=== PATIENT | female | born 1945 ===

== ENCOUNTER → 2017-08-07 | Outpatient (CLI) | payer OTHER ==
[~2017-08-07] MED LIST: ASCO500 PO; ATOR10 PO; Aspir 8181 MG PO; B-121000 MC2 PO; CALCAVITDA; CITA20 PO; D3-20002000 UNIT PO; FISH OIL 1,0001 EAC1 PO; FURO20 PO; K-Dur20 MEQ PO; MULTI VITAMIN1 EACH PO; Mobic15 MG PO; OMEPRAZOLE MAGN20 MG PO; OXYC5 PO; Reclast 55 MG/100 M; Reclast 55 MG/100 M IV; TOCO1000 PO; TRAM50 PO; ZESTORETIC 20-121 EA PO; ZESTRIL40 MG PO; ZOHYDRO ER10 M1
[2017-08-08 13:24] LABS: Source VAGINAL
== END | disposition home or self-care (01) ==
LOC: LAB 15:30
PROVIDERS: Nurse Practitioner
DX: Z01.419 Encounter for gynecological examination (general) (routine) without abnormal findings (principal)
CPT/HCPCS: G0145

== ENCOUNTER 2018-02-01 07:11 | Day surgery (SDC) | payer OTHER ==
[~2018-02-01 07:11] MED LIST changes: +ASCO500; -ASCO500 PO; -FISH OIL 1,0001 EAC1 PO; +FISH1000 PO; +MULTI VITAMIN1 EACH; -MULTI VITAMIN1 EACH PO; -OMEPRAZOLE MAGN20 MG PO; -OXYC5 PO; +Prilosec20 MG PO; -Reclast 55 MG/100 M IV; -TOCO1000 PO; +TOCO400; -TRAM50 PO; +ZESTRIL40 MG; -ZESTRIL40 MG PO
== END 2018-02-01 23:36 | disposition home or self-care (01) ==
LOC: MOI MAM 07:11
PROC: 0HBU3ZX Excision of Left Breast, Percutaneous Approach, Diagnostic (ICD-10-PCS; principal; 2018-02-01)
DX: N60.32 Fibrosclerosis of left breast (principal); R92.8 Other abnormal and inconclusive findings on diagnostic imaging of breast; Z85.3 Personal history of malignant neoplasm of breast
CPT/HCPCS: 19083; 77065; 88305; A4648

== ENCOUNTER 2020-04-22 13:02 | Day surgery (SDC) | payer OTHER ==
[~2020-04-22] VITALS: Ht 152.4 cm; Wt 141.9 kg
[~2020-04-22 13:02] MED LIST changes: +ANAS1 PO; -ASCO500; +ASCO500 PO; +FISH OIL 1,0001 EAC1 PO; -FISH1000 PO; -MULTI VITAMIN1 EACH; +MULTI VITAMIN1 EACH PO; +OMEPRAZOLE MAGN20 MG PO; +OXYC5 PO; -Prilosec20 MG PO; +Reclast 55 MG/100 M IV; +TOCO1000 PO; -TOCO400; +TRAM50 PO; -ZESTRIL40 MG; +ZESTRIL40 MG PO
--- NOTE | 2020-04-22 13:44 | NUR ---
04/22/20 1344 John Mares 1ST IV ATTEMPT RIGHT HAND VEIN BLEW, 2ND IV ATTEMPT UNSUCCESSFUL-CMT
== END 2020-04-22 15:40 | disposition home or self-care (01) ==
LOC: ORSCSDS 13:02
PROVIDERS: Surgery
PROC: 0DBL8ZX Excision of Transverse Colon, Via Natural or Artificial Opening Endoscopic, Diagnostic (ICD-10-PCS; principal; 2020-04-22 14:15)
DX: Z12.11 Encounter for screening for malignant neoplasm of colon (principal); Z86.010 Personal history of colon polyps; D12.3 Benign neoplasm of transverse colon; K63.89 Other specified diseases of intestine; K62.4 Stenosis of anus and rectum; I10 Essential (primary) hypertension; K21.9 Gastro-esophageal reflux disease without esophagitis; F32.9 Major depressive disorder, single episode, unspecified; E66.01 Morbid (severe) obesity due to excess calories; Z68.44 Body mass index [BMI] 60.0-69.9, adult; Z79.84 Long term (current) use of oral hypoglycemic drugs; Z79.82 Long term (current) use of aspirin; Z79.899 Other long term (current) drug therapy
CPT/HCPCS: 88305; J2704; J7120

== ENCOUNTER 2020-06-25 06:56 | Day surgery (SDC) | payer OTHER ==
[~2020-06-25] VITALS: Ht 165.1 cm; Wt 141.0 kg
--- NOTE | 2020-06-25 09:10 | NUR ---
ALERT AND ORIENTED. UP TO BATHROOM. ABLE TO TAKE SIPS OF WATER. UNABLE TO ADVANCE ASHER PROBE. PROCEDURE CANCELLED PER PT TO HAVE CARDIAC MRI
--- NOTE | 2020-06-25 09:28 | NUR ---
DISCHARGED PT TO HOME PER W/C WITH ONE STAFF. PT SIPPING WATER UPON DISCHARGE. SALINE LOCK REMOVED WITH CATHETER INTACT
== END 2020-06-25 09:30 | disposition home or self-care (01) ==
LOC: MHTC 06:56
DX: I35.0 Nonrheumatic aortic (valve) stenosis (principal)
CPT/HCPCS: 93312; 93325; 99152; J2250; J3010; J7040

== ENCOUNTER 2024-01-02 20:22 | Emergency (ER) | payer OTHER ==
[~2024-01-02] VITALS: Ht 165.1 cm; Wt 68.0 kg
[~2024-01-02 20:22] MED LIST changes: -B-121000 MC2 PO; +B-121000 MC7 PO; -CALCAVITDA; +CALCIUM 500 MG1 EAC2 PO; -D3-20002000 UNIT PO; +ESCI20 PO; +FISH OIL 1,0001 EA10 PO; -FISH OIL 1,0001 EAC1 PO; -FURO20 PO; +FURO40 PO; +LEVOFLOXACIN50011 PO; +OMEP20ER PO; -OMEPRAZOLE MAGN20 MG PO; +Vitamin D2000 UNIT PO
[2024-01-02] MEDS ORDERED: NS 1,000 ML IV SCH (20:25)
[2024-01-02 21:00] LABS: Hemoglobin 9.6 g/dL (11.5-16.0); Mean Corpuscular HGB 32.4 pg (26.0-34.0); Mean Corpuscular Volume 101 fL (80-100); Mean Platelet Volume 10.8 fL (9.1-12.4); Platelet Count 122 K/mm3 (150-400); RDW Standard Deviation 63.3 fL (35.1-46.3); Red Blood Cell Count 2.96 M/mm3 (3.80-5.20); White Blood Cell Count 2.84 K/mm3 (4.00-11.30)
[2024-01-02] MEDS ORDERED: FULVESTRANT (21:04)
[2024-01-02] MEDS ORDERED: PROLIA60 MG/1 ML SC (21:05)
[2024-01-02] MEDS ORDERED: [UNRECOGNIZED DRUG - OTHER] (21:05)
[2024-01-02] MEDS ORDERED: PANT40 PO (21:06)
[2024-01-02] MEDS ORDERED: TRAM50 PO (21:07)
[2024-01-02] MEDS ORDERED: Percocet 5-3251 EACH PO (21:09)
[2024-01-02 21:19] LABS: Albumin, Blood 2.5 g/dL (3.4-5.0); Albumin/Globulin Ratio 0.6 (0.8-1.8); Bilirubin, Total 0.6 mg/dL (0.1-1.0); Bun/Creatinine Ratio 16.8 (12.0-20.0); Calcium, Blood 8.7 mg/dL (8.5-10.1); Creatinine, Blood 1.67 mg/dL (0.40-1.00); Total Protein, Blood 6.5 g/dL (6.4-8.2)
[2024-01-02 22:16] LABS: BAND PERCENT MAN 1 % (0-8); BASOPHILS PERCENT MAN 0 % (0-2); EOSINOPHILS ABSOLUTE MAN 0.05 K/mm3 (0.00-0.68); EOSINOPHILS PERCENT MAN 2 % (0-6); LYMPHOCYTES ABSOLUTE MAN 1.47 K/mm3 (0.84-5.20); LYMPHOCYTES PERCENT MAN 52 % (21-46); MONOCYTES ABSOLUTE MAN 0.48 K/mm3 (0.16-1.47); MONOCYTES PERCENT MAN 17 % (4-13); NEUTROPHILS ABSOLUTE MAN 0.82 K/mm3 (1.96-9.15); SEG NEUTROPHILS PERCENT MAN 28 % (41-73); TOTAL CELLS COUNTED 100
[2024-01-02 23:00] VITALS: BP 115/63
== END 2024-01-03 00:03 | disposition home or self-care (01) ==
LOC: ER 20:22
PROVIDERS: Emergency Medicine
DX: E86.0 Dehydration (principal); L89.151 Pressure ulcer of sacral region, stage 1; I13.0 Hypertensive heart and chronic kidney disease with heart failure and stage 1 through stage 4 chronic kidney disease, or unspecified chronic kidney disease; N18.30 Chronic kidney disease, stage 3 unspecified; I50.30 Unspecified diastolic (congestive) heart failure
CPT/HCPCS: 80053; 84484; 85025; 93005; 93010; 96360; 96361; 99285-25